=== PATIENT | male | born 1990 | race Asian ===

== ENCOUNTER 2022-06-02 01:37 | Inpatient (IN) | payer OTHER ==
[~2022-06-02] VITALS: Ht 170.2 cm; Wt 55.8 kg
[2022-06-02] MEDS ORDERED: HOME MED LIST COMPLETE! XX SCH (12:15)
[2022-06-02] MEDS ORDERED: LORazepam 2 MG TAB PO ONE (15:15)
[2022-06-02] MEDS ORDERED: MAALOX 30 ML SUSP *UDC PO PRN (18:15)
[2022-06-02] MEDS ORDERED: MOM 30ML SUSPENSION UDC PO PRN (18:15)
[2022-06-02] MEDS ORDERED: ACETAMINOPHEN TAB 650MG DOSE (2X325MG) PO PRN (18:15)
[2022-06-02] MEDS ORDERED: NICOTINE 21MG/24HR 1 EA TRANSDERMAL TD PRN (18:15)
[2022-06-02] MEDS: LORazepam 1 MG TAB PO SCH (20:22)
[2022-06-03] MEDS: LORazepam 1 MG TAB PO SCH ×3 (02:15→17:52)
[2022-06-03 06:22] VITALS: BP 116/64
[2022-06-03 08:55] LABS: BASO % 0.6 % (0.0-1.0); EOS # 0.1 10^3/uL (0.0-0.5); EOS % 1.2 % (0.0-3.0); HEMATOCRIT 46.3 % (42.0-52.0); HEMOGLOBIN 15.9 g/dl (13.5-17.5); LYMPH # 0.9 10^3/uL (1.5-5.0); LYMPH % 17.5 % (24.0-44.0); MEAN CORPUSCULAR HEMOGLOBIN 31.7 pg (27.0-33.0); MEAN CORPUSCULAR HGB CONC 34.3 g/dl (32.0-36.5); MEAN CORPUSCULAR VOLUME 92.4 fl (80.0-96.0); MONO # 0.3 10^3/uL (0.0-0.8); MONO % 6.4 % (2.0-8.0); NEUTROPHILS # 3.6 10^3/uL (1.5-8.5); NEUTROPHILS % 74.1 % (36.0-66.0); PLATELET COUNT, AUTOMATED 179 10^3/uL (150-450); RED BLOOD COUNT 5.01 10^6/uL (4.30-6.10); WHITE BLOOD COUNT 4.9 10^3/uL (4.0-10.0)
[2022-06-03 09:19] LABS: ALBUMIN 4.1 G/DL (3.2-5.2); ALKALINE PHOSPHATASE 111 U/L (46-116); ALT/SGPT 25 U/L (7.0-40); AST/SGOT 28 U/L (<34); BILIRUBIN,TOTAL 0.6 MG/DL (0.3-1.2); BLOOD UREA NITROGEN 14 MG/DL (9-23); CALCIUM LEVEL 9.8 MG/DL (8.5-10.1); CARBON DIOXIDE LEVEL 29 MMOL/L (20-31); CHLORIDE LEVEL 102 MMOL/L (98-107); CREATININE FOR GFR 0.89 MG/DL (0.70-1.30); GLOMERULAR FILTRATION RATE > 60.0 (>60); GLUCOSE, FASTING 134 MG/DL (60-100); POTASSIUM SERUM 4.2 MMOL/L (3.5-5.1); SODIUM LEVEL 140 MMOL/L (136-145); TOTAL PROTEIN 7.1 G/DL (5.7-8.2)
[2022-06-03 10:25] LABS: THYROID STIMULATING HORMONE 0.895 uIU/ML (0.55-4.78); THYROXINE (T4) 10.1 UG/DL (4.5-10.9)
[2022-06-03 10:26] LABS: FREE THYROXINE INDEX 4.1 % (1.4-3.8); T UPTAKE 40.7 % (22.5-37.0)
[2022-06-03] MEDS: FLUoxetine 20MG CAP PO SCH (10:46)
[2022-06-03 16:43] VITALS: BP 108/66
[2022-06-04] MEDS: LORazepam 1 MG TAB PO SCH ×3 (02:15→17:59)
[2022-06-04 06:22] VITALS: BP 120/65
[2022-06-04] MEDS: FLUoxetine 20MG CAP PO SCH (07:53)
[2022-06-04 16:24] VITALS: BP 132/84
[2022-06-04] MEDS: traZODone 50 MG TAB PO PRN (19:51)
[2022-06-05] MEDS: LORazepam 1 MG TAB PO SCH ×3 (02:01→18:04)
[2022-06-05 06:17] VITALS: BP 119/65
[2022-06-05] MEDS: FLUoxetine 20MG CAP PO SCH (08:48)
[2022-06-05 16:46] VITALS: BP 104/69
[2022-06-05] MEDS: traZODone 50 MG TAB PO PRN (20:12)
[2022-06-06] MEDS: LORazepam 1 MG TAB PO SCH ×3 (02:07→20:06)
[2022-06-06 06:08] VITALS: BP 139/65
[2022-06-06] MEDS: FLUoxetine 20MG CAP PO SCH (09:34)
[2022-06-06] MEDS: buPROPion **XL** TABLET 150MG (WELLBUTRIN XL) PO SCH (09:34)
[2022-06-06 18:20] VITALS: BP 118/68
[2022-06-07 06:05] VITALS: BP 118/64
[2022-06-07] MEDS: FLUoxetine 20MG CAP PO SCH (08:11)
[2022-06-07] MEDS: buPROPion **XL** TABLET 150MG (WELLBUTRIN XL) PO SCH (08:11)
[2022-06-07] MEDS: LORazepam 1 MG TAB PO SCH ×2 (08:11→20:13)
[2022-06-07 19:06] VITALS: BP 113/64
[2022-06-07] MEDS: traZODone 50 MG TAB PO PRN (20:13)
[2022-06-08 06:22] VITALS: BP 122/58
[2022-06-08] MEDS: FLUoxetine 20MG CAP PO SCH (08:30)
[2022-06-08] MEDS: LORazepam 1 MG TAB PO SCH ×2 (08:30→20:28)
[2022-06-08 18:38] VITALS: BP 132/82
[2022-06-08] MEDS: traZODone 50 MG TAB PO PRN (20:28)
[2022-06-09 06:40] VITALS: BP 114/70
[2022-06-09] MEDS: LORazepam 1 MG TAB PO SCH (08:19)
[2022-06-09] MEDS: FLUoxetine 20MG CAP PO SCH (08:19)
[2022-06-09] MEDS ORDERED: TRAZ-252 PO (09:29)
[2022-06-09] MEDS ORDERED: NICO21PAT TD (09:29)
[2022-06-09] MEDS ORDERED: ATIV1TAB7 PO (09:29)
[2022-06-09] MEDS ORDERED: FLUO20CA22 PO (09:29)
== END 2022-06-09 11:11 | disposition home or self-care (01) | DRG 751 ==
LOC: M ED 01:37 → M ED INP 18:12 → M PSY 21:31
PROVIDERS: ADMIT Student in an Organized Health Care Education/Training Program; ATTEND Student in an Organized Health Care Education/Training Program
DX: F32.2 Major depressive disorder, single episode, severe without psychotic features (principal); R45.851 Suicidal ideations; F15.10 Other stimulant abuse, uncomplicated; F43.89 Other reactions to severe stress; Z91.411 Personal history of adult psychological abuse; Z62.810 Personal history of physical and sexual abuse in childhood; Z63.5 Disruption of family by separation and divorce